=== PATIENT | female | born 1960 | race Caucasian/White ===

== ENCOUNTER 2020-03-15 11:02 | Emergency (ER) | payer MEDICAID ==
[~2020-03-15] VITALS: Ht 160 cm; Wt 79.8 kg
[2020-03-15 11:08] VITALS: BP 142/112
--- NOTE | 2020-03-15 11:09 | NUR ---
59 Y/O FEMALE FROM HOME C/O LT SIDED FACIAL NUMBNESS SINCE YESTERDAY. PT STATES THIS HAPPENED APPROX 3 MONTHS AGO. WAS REFERRED FROM URGENT CARE TO RULE OUT TIA. DENIES BLURRED VISION, RINGING IN EAR, N/V/D. RR EVEN AND UNLABORED. HOB ELEVATED. 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
--- NOTE | 2020-03-15 11:24 | NUR ---
20G IV PLACED TO LT FOREARM. LABS DRAWN AT THIS TIME.
--- NOTE | 2020-03-15 11:36 | NUR ---
PT AMBULATED TO RESTROOM FOR COLLECTION OF URINE
--- NOTE | 2020-03-15 11:38 | NUR ---
RADIOLOGY AT BEDSIDE
[2020-03-15 11:42] LABS: BASOPHILS % (AUTO) 0.4 % (0.0-2.0); EOSINOPHILS % (AUTO) 0.3 % (0.0-4.0); HEMATOCRIT 43.9 % (36-48); HEMOGLOBIN 14.6 g/dL (12.0-16.0); LYMPHOCYTES # (AUTO) 1.5 K/uL (2.5-16.5); LYMPHOCYTES % (AUTO) 22.5 % (20.5-51.1); MEAN CORPUSCULAR HEMOGLOBIN 28 pg (27-31); MEAN CORPUSCULAR HGB CONC 33 g/dL (33-37); MEAN CORPUSCULAR VOLUME 82.7 fL (80-94); MONOCYTES # (AUTO) 0.4 K/uL (0.8-1.0); MONOCYTES % (AUTO) 6.1 % (1.7-9.3); NEUTROPHILS # (AUTO) 4.8 K/uL (1.8-7.7); NEUTROPHILS % (AUTO) 70.7 % (42.2-75.2); PLATELET COUNT (AUTO) 218 K/uL (140-450); RED BLOOD CELL COUNT(AUTO) 5.31 MIL/uL (4.20-5.40); RED CELL DISTRIBUTION WIDTH 13.9 % (11.6-13.7); WHITE BLOOD COUNT (AUTO) 6.8 K/uL (4.8-10.8)
--- NOTE | 2020-03-15 11:54 | NUR ---
PT TO CT VIA WHEELCHAIR
--- NOTE | 2020-03-15 12:01 | NUR ---
Adrienne phoenix in [facility] - 03/15/20 at 1203 by MED Pt returned from CT and placed back into bed 11.
--- NOTE | 2020-03-15 12:02 | NUR ---
PT HAS BEEN TAKEN BACK FROM CT SCAN VIA WHEELCHAIR ASSISTED BY RRT.
[2020-03-15 12:22] LABS: ALBUMIN 4.1 g/dL (3.4-5.0); ANION GAP 15.1 (8-16); CARBON DIOXIDE 23.9 mmol/L (21-32); THYROID STIMULATING HORMONE 1.32 uIU/mL (0.34-3.74); TOTAL BILIRUBIN 0.7 mg/dL (0.0-1.0)
[2020-03-15 13:24] LABS: APPEARANCE,URINE CLEAR (CLEAR); BILIRUBIN,URINE NEGATIVE (NEGATIVE); BLOOD, URINE NEGATIVE (NEGATIVE); COLOR,URINE YELLOW (YELLOW); LEUKOCYTE ESTERASE ,URINE NEGATIVE (NEGATIVE); NITRITE, URINE NEGATIVE (NEGATIVE); PH,URINE 6.5 (5.0-9.0); UGLUCOSE NEGATIVE (NEGATIVE)
[2020-03-15 13:54] VITALS: BP 136/91
--- NOTE | 2020-03-15 13:55 | NUR ---
Patient discharged with v/s stable. Written and verbal after care instructions given and explained. Patient verbalized understanding. Ambulatory with steady gait. All questions addressed prior to discharge. Advised to follow up with PMD.
== END 2020-03-15 13:55 | disposition home or self-care (01) ==
LOC: MED 11:02
DX: R20.0 Anesthesia of skin (principal); I10 Essential (primary) hypertension
CPT/HCPCS: 36415; 70450; 71045; 80053; 81003; 84443; 84484; 85025; 93005; 99285

== ENCOUNTER 2023-10-13 12:55 | Emergency (ER) | payer MEDICAID ==
[~2023-10-13] VITALS: Ht 157.5 cm; Wt 77.1 kg
[2023-10-13 13:07] VITALS: BP 164/82; PULSE 99; RESP 18; TEMP 98.1; O2SAT 98
[2023-10-13 13:46] LABS: BASOPHILS % (AUTO) 0.4 % (0.0-2.0); EOSINOPHILS % (AUTO) 0.6 % (0.0-4.0); HEMATOCRIT 45.5 % (36-48); HEMOGLOBIN 14.9 g/dL (12.0-16.0); LYMPHOCYTES # (AUTO) 1.6 K/uL (2.5-16.5); LYMPHOCYTES % (AUTO) 20.2 % (20.5-51.1); MEAN CORPUSCULAR HEMOGLOBIN 27 pg (27-31); MEAN CORPUSCULAR HGB CONC 33 g/dL (33-37); MEAN CORPUSCULAR VOLUME 82.3 fL (80-94); MONOCYTES # (AUTO) 0.5 K/uL (0.8-1.0); MONOCYTES % (AUTO) 6.8 % (1.7-9.3); NEUTROPHILS # (AUTO) 5.8 K/uL (1.8-7.7); PLATELET COUNT (AUTO) 222 K/uL (140-450); RED BLOOD CELL COUNT(AUTO) 5.52 MIL/uL (4.20-5.40); RED CELL DISTRIBUTION WIDTH 14.7 % (11.6-13.7)
[2023-10-13 13:52] LABS: ANION GAP 8.4 (8-16); CALCIUM 8.9 mg/dL (8.5-10.1); CARBON DIOXIDE 30.1 mmol/L (21-32); POTASSIUM 4.5 mmol/L (3.5-5.1)
[2023-10-13 14:03] LABS: APPEARANCE,URINE CLEAR (CLEAR); BILIRUBIN,URINE NEGATIVE (NEGATIVE); BLOOD, URINE NEGATIVE (NEGATIVE); COLOR,URINE YELLOW (YELLOW); LEUKOCYTE ESTERASE ,URINE TRACE (NEGATIVE); NITRITE, URINE NEGATIVE (NEGATIVE); PH,URINE 6.5 (5.0-9.0); PROTEIN,URINE NEGATIVE (NEGATIVE); UGLUCOSE NEGATIVE (NEGATIVE); UROBILINOGEN,URINE 0.2 EU/dL (0.2 - 1)
[2023-10-13 14:08] LABS: ALANINE AMINOTRANSFERASE 28 U/L (12-78); ALBUMIN 3.9 g/dL (3.4-5.0); ALKALINE PHOSPHATASE 130 U/L (50-136); ASPARTATE AMINOTRANSFERASE 15 U/L (15-37); BILIRUBIN,DIRECT 0.1 mg/dL (0.0-0.3); TOTAL BILIRUBIN 0.5 mg/dL (0.0-1.0); TOTAL PROTEIN, SERUM 7.9 g/dL (6.4-8.2)
[2023-10-13 14:41] VITALS: O2SAT 98
== END 2023-10-13 14:29 | disposition home or self-care (01) ==
LOC: MED 12:55
DX: R00.2 Palpitations (principal); I10 Essential (primary) hypertension
CPT/HCPCS: 36415; 80048; 80076; 81003; 84443; 84484; 85025; 93005; 99284

== ENCOUNTER 2023-10-15 09:55 | Emergency (ER) | payer MEDICAID ==
[~2023-10-15] VITALS: Ht 160 cm; Wt 77.1 kg
[2023-10-15 10:19] VITALS: BP 125/74; PULSE 102; RESP 18; TEMP 97.8; O2SAT 99
[2023-10-15 11:51] LABS: BASOPHILS % (AUTO) 0.4 % (0.0-2.0); EOSINOPHILS % (AUTO) 0.4 % (0.0-4.0); HEMATOCRIT 45.1 % (36-48); HEMOGLOBIN 14.8 g/dL (12.0-16.0); LYMPHOCYTES # (AUTO) 1.5 K/uL (2.5-16.5); LYMPHOCYTES % (AUTO) 18.3 % (20.5-51.1); MEAN CORPUSCULAR HEMOGLOBIN 27 pg (27-31); MEAN CORPUSCULAR HGB CONC 33 g/dL (33-37); MEAN CORPUSCULAR VOLUME 82.8 fL (80-94); MONOCYTES # (AUTO) 0.4 K/uL (0.8-1.0); MONOCYTES % (AUTO) 5.5 % (1.7-9.3); NEUTROPHILS # (AUTO) 6.1 K/uL (1.8-7.7); NEUTROPHILS % (AUTO) 75.4 % (42.2-75.2); PLATELET COUNT (AUTO) 229 K/uL (140-450); RED BLOOD CELL COUNT(AUTO) 5.45 MIL/uL (4.20-5.40); RED CELL DISTRIBUTION WIDTH 14.7 % (11.6-13.7); WHITE BLOOD COUNT (AUTO) 8.1 K/uL (4.8-10.8)
[2023-10-15 12:02] LABS: APPEARANCE,URINE CLEAR (CLEAR); BILIRUBIN,URINE NEGATIVE (NEGATIVE); BLOOD, URINE NEGATIVE (NEGATIVE); COLOR,URINE YELLOW (YELLOW); LEUKOCYTE ESTERASE ,URINE NEGATIVE (NEGATIVE); NITRITE, URINE NEGATIVE (NEGATIVE); PROTEIN,URINE NEGATIVE (NEGATIVE); UGLUCOSE NEGATIVE (NEGATIVE); UROBILINOGEN,URINE 0.2 EU/dL (0.2 - 1)
[2023-10-15 12:35] LABS: ALBUMIN 3.7 g/dL (3.4-5.0); ANION GAP 13.8 (8-16); CALCIUM 8.9 mg/dL (8.5-10.1); CARBON DIOXIDE 25.9 mmol/L (21-32); CREATININE 0.8 mg/dL (0.6-1.3); POTASSIUM 4.7 mmol/L (3.5-5.1); TOTAL BILIRUBIN 0.6 mg/dL (0.0-1.0); TOTAL PROTEIN, SERUM 7.7 g/dL (6.4-8.2)
[2023-10-15 13:04] VITALS: BP 130/75; PULSE 89; RESP 18; TEMP 98; O2SAT 99
== END 2023-10-15 13:04 | disposition home or self-care (01) ==
LOC: MED 09:55
DX: R42 Dizziness and giddiness (principal); I10 Essential (primary) hypertension; Z79.899 Other long term (current) drug therapy
CPT/HCPCS: 36415; 71045; 80053; 81003; 84484; 85025; 93005; 99285

== ENCOUNTER 2024-08-10 09:50 | Emergency (ER) | payer MEDICAID ==
[~2024-08-10] VITALS: Ht 165.1 cm; Wt 80.3 kg
[2024-08-10 10:10] VITALS: BP 141/87; PULSE 104; RESP 16; TEMP 98; O2SAT 99
[2024-08-10] MEDS: MORPHINE SULFATE 4 MG/ML SYR IM ONE (12:25)
[2024-08-10] MEDS: ONDANSETRON 4 MG TAB PO ONE (12:25)
[2024-08-10] MEDS: BACITRACIN OINT 500 UNITS/GM PKT TP ONE (12:25)
[2024-08-10] MEDS ORDERED: BACI-418 TP (13:09)
[2024-08-10] MEDS ORDERED: IBUP-2213 PO (13:09)
[2024-08-10] MEDS ORDERED: ACET-8905 PO (13:09)
[2024-08-10 13:25] VITALS: BP 135/87; PULSE 77; RESP 16; TEMP 36.66960; O2SAT 99
== END 2024-08-10 13:25 | disposition home or self-care (01) ==
LOC: MED 09:50
DX: S52.001A Unspecified fracture of upper end of right ulna, initial encounter for closed fracture (principal); S40.012A Contusion of left shoulder, initial encounter; S40.011A Contusion of right shoulder, initial encounter; S80.02XA Contusion of left knee, initial encounter; S80.01XA Contusion of right knee, initial encounter; S80.211A Abrasion, right knee, initial encounter; M25.521 Pain in right elbow; M79.631 Pain in right forearm; I10 Essential (primary) hypertension; E78.5 Hyperlipidemia, unspecified; Z79.899 Other long term (current) drug therapy; W01.0XXA Fall on same level from slipping, tripping and stumbling without subsequent striking against object, initial encounter; Y92.009 Unspecified place in unspecified non-institutional (private) residence as the place of occurrence of the external cause; Y93.89 Activity, other specified; Y99.8 Other external cause status
CPT/HCPCS: 29105; 73030; 73080; 96372; 99284; J2270; Q0162